=== PATIENT | female | born 1985 | race Hispanic/Latino ===

== ENCOUNTER 2022-09-05 17:40 | Emergency (ER) | payer OTHER ==
[~2022-09-05] VITALS: Ht 162.6 cm; Wt 67.6 kg
[2022-09-05] MEDS ORDERED: MEDROL4 MG PO (19:09)
[2022-09-05] MEDS ORDERED: CYCLOBENZAPRINE5 MG PO (19:10)
[2022-09-05] MEDS ORDERED: HYDROCODON-ACE1 EA12 PO (19:11)
[2022-09-05] MEDS ORDERED: PREDNISONE 20 MG TAB PO ONE (19:15)
[2022-09-05] MEDS ORDERED: CEFUROXIME500 MG PO (19:21)
[2022-09-05] MEDS ORDERED: PREDNISONE 20 MG TAB ONE (19:25)
== END 2022-09-05 19:22 | disposition home or self-care (01) ==
LOC: FSED 18:24
DX: M54.16 Radiculopathy, lumbar region (principal); N39.0 Urinary tract infection, site not specified; R10.31 Right lower quadrant pain; E11.9 Type 2 diabetes mellitus without complications; D64.9 Anemia, unspecified; Z98.84 Bariatric surgery status
CPT/HCPCS: 81003; 81025; 99282; J7512

== ENCOUNTER 2022-11-15 22:36 | Emergency (ER) | payer OTHER ==
[~2022-11-15] VITALS: Ht 162.6 cm; Wt 62.6 kg
[~2022-11-15 22:36] MED LIST: CEFUROXIME500 MG PO; CYCLOBENZAPRINE5 MG PO; HYDROCODON-ACE1 EA12 PO; MEDROL4 MG PO
[2022-11-15] MEDS ORDERED: FAMOTIDINE 20 MG/2 ML VIAL IV STA (23:49)
[2022-11-15] MEDS ORDERED: ONDANSETRON HCL INJ 2MG/ML 2ML 2 MG/ML VIAL IV STA (23:53)
[2022-11-16] MEDS ORDERED: SODIUM CHLORIDE 0.9% 1000ML 1,000 ML IV SCH
[2022-11-16] MEDS ORDERED: SODIUM CHLORIDE 0.9% 1000ML 1,000 ML ONE (00:02)
[2022-11-16] MEDS ORDERED: FAMOTIDINE 20 MG/2 ML VIAL IV ONE (00:02)
[2022-11-16] MEDS ORDERED: ONDANSETRON HCL INJ 2MG/ML 2ML 2 MG/ML VIAL ONE (00:02)
[2022-11-16] MEDS ORDERED: IOPAMIDOL 370 MG/ML 100 ML INFUS..BTL INJ ONE (00:03)
[2022-11-16] MEDS ORDERED: KETOROLAC TROMETHAMINE 30 MG/ML VIAL ONE (00:38)
[2022-11-16] MEDS ORDERED: KETOROLAC TROMETHAMINE 30 MG/ML VIAL IV STA (00:38)
[2022-11-16] MEDS ORDERED: CEFUROXIME500 MG PO (01:48)
[2022-11-16] MEDS ORDERED: PANTOPRAZOLE SO40 MG PO (01:49)
[2022-11-16] MEDS ORDERED: ONDANSETRON ODT4 MG PO (01:49)
[2022-11-16 02:10] VITALS: BP 118/72
== END 2022-11-16 02:10 | disposition home or self-care (01) ==
LOC: FSED 22:49
DX: R30.0 Dysuria (principal); N39.0 Urinary tract infection, site not specified; K29.70 Gastritis, unspecified, without bleeding; R10.10 Upper abdominal pain, unspecified; E11.65 Type 2 diabetes mellitus with hyperglycemia; R11.0 Nausea; R74.8 Abnormal levels of other serum enzymes; F14.90 Cocaine use, unspecified, uncomplicated; Z98.84 Bariatric surgery status
CPT/HCPCS: 74177; 80048; 80076; 81003; 82553; 84484; 85025; 87086; 87186; 96374; 96375; 96376; 99284; J1885; J2405; J7030; Q9967